=== PATIENT | female | born 1990 | race Caucasian/White ===

== ENCOUNTER 2016-12-19 02:36 | Emergency (ER) | payer MEDICAID ==
[2016-12-19 02:36] VITALS: O2SAT 100
[2016-12-19] MEDS ORDERED: ceFAZolin 2 GM PREMIX 50 ML ONE (02:46)
[2016-12-19] MEDS ORDERED: MORPHINE SULFATE 8 MG/ML INJ ONE (02:46)
[2016-12-19 02:55] VITALS: BP 136/73; PULSE 114; RESP 16; TEMP 98.5; O2SAT 100
[2016-12-19 02:58] LABS: I-STAT POTASSIUM 3.5 MMOL/L (3.5-4.9); I-STAT SODIUM 140 MMOL/L (138-146)
[2016-12-19 03:02] LABS: AUTOMATED NEUTROPHIL # 7.8 TH/MM3 (1.8-7.7); EOSINOPHIL # 0.3 TH/MM3 (0-0.4); EOSINOPHIL % 2.6 % (0.0-4.0); LYMPH % 26.7 % (9.0-44.0); LYMPHOCYTE # 3.4 TH/MM3 (1.0-4.8); MEAN CORPUSCULAR HGB CONC 33.8 % (32.0-36.0); MONO % 9.9 % (0.0-8.0); NEUT % 60.8 % (16.0-70.0); PLATELET COUNT 257 TH/MM3 (150-450); RED BLOOD COUNT 4.65 MIL/MM3 (4.00-5.30); WHITE BLOOD COUNT 12.9 TH/MM3 (4.0-11.0)
[2016-12-19 03:06] LABS: HEMO FLAGS AUTO DIFF
[2016-12-19 03:10] VITALS: BP 130/70; PULSE 110; RESP 16; O2SAT 100
[2016-12-19 03:11] LABS: APTT (PATIENT) 33.3 SEC (24.3-30.1); INTERNATIONAL NORMALIZED RATIO 1.1 RATIO; PROTHROMBIN TIME - PATIENT 11.9 SEC (9.8-11.6)
[2016-12-19 03:22] LABS: BETA HCG QUANT LESS THAN 1 MIU/ML (0-5)
[2016-12-19] MEDS ORDERED: IOHEXOL 350 MG/ML 10 ML VIAL (for RAD DIAG) IV ONE (03:22)
[2016-12-19 03:31] LABS: PLATELET ESTIMATE SMEAR NORMAL (NORMAL); PLATELET MORPHOLOGY NORMAL (NORMAL); SCAN/DIFF AUTO DIFF CONFIRMED
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
[2016-12-19 03:56] VITALS: BP 136/72; PULSE 112; RESP 20; O2SAT 99
[2016-12-19] MEDS ORDERED: KETOROLAC TROMETHAMINE 30 MG/ML (IVP) VIAL IV PUSH ONE (04:00)
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
[2016-12-19] MEDS ORDERED: IBUP-232 PO (04:59)
[2016-12-19] MEDS ORDERED: BACT800T5 PO (05:03)
[2016-12-19] MEDS ORDERED: MORPHINE SULFATE 4 MG/ML INJ IV PUSH ONE (05:15)
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
== END 2016-12-19 05:28 | disposition home or self-care (01) ==
LOC: EDBD 02:36 → NEPI 02:36 → NEPE 05:28
DX: S71.101A Unspecified open wound, right thigh, initial encounter (principal); X95.9XXA Assault by unspecified firearm discharge, initial encounter; Y92.810 Car as the place of occurrence of the external cause
CPT/HCPCS: 75635; 82435; 82565; 82947; 84132; 84295; 84520; 84702; 85025; 85610; 85730; 86850; 86900; 86901; 96365; 96374; 96375; 96376; 99285; 99291; J0690; J1885; J2270; Q9967; G0390

== ENCOUNTER 2016-12-21 22:14 | Emergency (ER) | payer MEDICAID ==
[~2016-12-21 22:14] MED LIST: BACT800T5 PO; IBUP-232 PO
[2016-12-21 22:16] VITALS: BP 144/86; PULSE 111; RESP 18; TEMP 98.8; O2SAT 98
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
[2016-12-21] MEDS ORDERED: KETOROLAC TROMETHAMINE 60 MG/2 ML (IM) VIAL IM ONE (23:00)
[2016-12-21] MEDS ORDERED: MORPHINE SULFATE 8 MG/ML INJ IM ONE (23:00)
[2016-12-21] MEDS ORDERED: IBUP800T23 PO (23:10)
[2016-12-21] MEDS ORDERED: CEPH-460 PO (23:10)
[2016-12-21] MEDS ORDERED: PERC5TAB12 PO (23:10)
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
[2016-12-22] MEDS ORDERED: oxyCODONE/ACETAMINOPHEN 10 MG/325 MG TAB PO ONE
[2016-12-22 00:02] VITALS: BP 120/56; PULSE 89; RESP 18; TEMP 98.1; O2SAT 100
[2016-12-22 01:00] VITALS: RESP 18
== END 2016-12-22 01:01 | disposition home or self-care (01) ==
LOC: NEPE 22:14
DX: S71.131D Puncture wound without foreign body, right thigh, subsequent encounter (principal); X95.9XXD Assault by unspecified firearm discharge, subsequent encounter; Z72.0 Tobacco use
CPT/HCPCS: 96372; 99282; J1885; J2270

== ENCOUNTER 2016-12-27 00:07 | Emergency (ER) | payer MEDICAID ==
[~2016-12-27 00:07] MED LIST changes: +CEPH-460 PO; +IBUP800T23 PO; +PERC5TAB12 PO
[2016-12-27 00:09] VITALS: BP 131/79; PULSE 87; RESP 16; TEMP 99; O2SAT 100
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
[2016-12-27] MEDS ORDERED: KETOROLAC TROMETHAMINE 60 MG/2 ML (IM) VIAL IM ONE (01:15)
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
== END 2016-12-27 02:19 | disposition left against medical advice (07) ==
LOC: NEPK 00:07
DX: M79.651 Pain in right thigh (principal); R60.0 Localized edema
CPT/HCPCS: 93971

== ENCOUNTER 2017-05-30 11:48 | Emergency (ER) | payer SELFPAY ==
[~2017-05-30] VITALS: Ht 167.6 cm; Wt 70.0 kg
[2017-05-30 11:56] VITALS: BP 114/64; PULSE 98; RESP 14; TEMP 99.2; O2SAT 98
[2017-05-30] MEDS ORDERED: KETOROLAC TROMETHAMINE 60 MG/2 ML (IM) VIAL IM ONE (14:30)
[2017-05-30] MEDS ORDERED: CEPH-460 PO (14:52)
[2017-05-30] MEDS ORDERED: BACT800T5 PO (14:52)
--- NOTE | 2017-05-30 14:54 | PD ---
HPI Chief Complaint: Skin Problem Time Seen by Provider: 14:01 Travel History International Travel<30 days: No Contact w/Intl Traveler<30days: No Traveled to known affect area: No History of Present Illness HPI 26-year-old female presents emergency department for evaluation of pain and erythema to the right hip 3 days. Patient denies fever or chills. Patient reports she's had a previous abscess in the past with similar symptoms. Symptoms severity is moderate. No alleviating factors. PFSH Past Medical History Medical History: Denies Significant Hx Diminished Hearing: No ?: Not : 2 Para: 2 Past Surgical History Section: Yes Hysterectomy: Yes (partial) Social History Alcohol Use: No Tobacco Use: Yes Substance Use: No Allergies-Medications (Allergen,Severity, Reaction): Coded Allergies: No Known Allergies (Unverified , 12/27/16) Reported Meds & Prescriptions Reported Meds & Active Scripts Active Percocet (Oxycodone-Acetaminophen) 5-325 mg Tab 1 Tab PO Q6H PRN Keflex (Cephalexin) 500 Mg Cap 500 Mg PO Q8H Ibuprofen 800 Mg Tab 800 Mg PO Q6HR PRN 30 Days Bactrim DS (Sulfamethoxazole-Trimethoprim) 800-160 Mg Tab 1 Tab PO BID Ibuprofen 600 Mg Tab 600 Mg PO Q8HR PRN Review of Systems Except as stated in HPI: all other systems reviewed are Neg General / Constitutional: No: Fever Physical Exam Narrative GENERAL: Well-nourished, well-developed patient. SKIN: Focused skin assessment warm/dry. HEAD: Normocephalic. EYES: No scleral icterus. No injection or drainage. NECK: Supple, trachea midline. No JVD or lymphadenopathy. CARDIOVASCULAR: Regular rate and rhythm without murmurs, gallops, or rubs. RESPIRATORY: Breath sounds equal bilaterally. No accessory muscle use. GASTROINTESTINAL: Abdomen soft, non-tender, nondistended. MUSCULOSKELETAL: No cyanosis. 4 x 4 centimeter area of erythema to the right lateral thigh. Area is mildly indurated, warm, erythematous. No fluctuance or drainage. No lymphangitis. Data Data Last Documented VS Vital Signs Date Time Temp Pulse Resp B/P (MAP) Pulse Ox O2 Delivery O2 Flow Rate FiO2 05/30/17 11:56 99.2 98 14 114/64 (81) 98 Orders Orders Ketorolac Inj (Toradol Inj) (10/9/17 14:30) [facility] Medical Decision Making Medical Screen Exam Complete: Yes Emergency Medical Condition: Yes Differential Diagnosis Abscess, cellulitis, wound infection Narrative Course 26-year-old female presents emergency department for evaluation of pain and erythema to the right hip 3 days. Patient denies fever or chills. Patient reports she's had a previous abscess in the past with similar symptoms. On exam patient has a 4 x 4 centimeter area of erythema with induration. There is no fluctuance or drainage. Patient's vital signs are stable. She is nontoxic appearing. She'll be treated with outpatient oral antibiotics instructed follow -up with her primary care. Diagnosis Primary Impression: Cellulitis Qualified Codes: L03.115 - Cellulitis of right lower limb Referrals: [facility] Primary Care Physician Additional Instructions: Take the antibiotics as prescribed. Follow-up the primary doctor. Return to the emergency department if he developed new or worsening symptoms. Scripts Cephalexin (Keflex) 500 Mg Cap 500 MG PO Q6H for Infection for 10 Days, #40 CAP 0 Refills Prov: Heather Squires 05/30/17 Sulfamethoxazole-Trimethoprim (Bactrim DS) 800-160 Mg Tab 1 TAB PO BID for Infection, #20 TAB 0 Refills Prov: Heather Squires 05/30/17 Disposition: 01 DISCHARGE HOME Condition: Stable Heather Squires May 30, 2017 14:54
== END 2017-05-30 15:11 | disposition home or self-care (01) ==
LOC: NEPD 11:48
DX: L03.115 Cellulitis of right lower limb (principal); Z72.0 Tobacco use
CPT/HCPCS: 96372; 99284; J1885